=== PATIENT | male | born 1975 | race Caucasian/White ===

== ENCOUNTER → 2016-06-28 | Day surgery (SDC) | payer OTHER ==
[2016-06-26 10:05] LABS: BILIRUBIN NEGATIVE (NEGATIVE); BLOOD NEGATIVE (NEGATIVE); CLARITY CLEAR (CLEAR); COLOR YELLOW (YELLOW); GLUCOSE NEGATIVE (NEGATIVE); KETONE NEGATIVE (NEGATIVE); LEUKO ESTERASE NEGATIVE (NEGATIVE); NITRITE NEGATIVE (NEGATIVE); PROTEIN NEGATIVE (NEGATIVE); SPECIFIC GRAVITY <= 1.005 (1.005-1.030); UROBILINOGEN 0.2 E.U./dl (0.2-1.0)
[2016-06-26 10:08] LABS: BASO % 0.4 % (0.0-1.0); EOS # 0.2 10*3/uL (0.0-0.4); EOS % 1.6 % (1.0-4.0); HEMATOCRIT 44.9 % (42.0-52.0); HEMOGLOBIN 15.3 g/dl (14.0-18.0); LYMPH # 1.9 10*3/uL (1.3-4.4); LYMPH % 21.3 % (27.0-41.0); MEAN CORPUSCULAR HGB 29.3 pg (27.0-31.0); MEAN CORPUSCULAR HGB CONC 34.1 g/dl (33.0-37.0); MEAN PLATELET VOLUME 12.2 fl (9.6-12.3); MONO # 0.6 10*3/uL (0.1-1.0); MONO % 6.5 % (3.0-9.0); NEUT # 6.4 10*3/uL (2.3-7.9); NEUT % 69.9 % (47.0-73.0); PLATELET COUNT AUTOMATED 193 10*3/uL (130-400); RED BLOOD COUNT 5.22 10*6/uL (4.50-5.90); RED CELL DISTRI WIDTH 13.9 % (0-14.5); WHITE BLOOD COUNT 9.1 10*3/uL (4.8-10.8)
[2016-06-26 10:32] LABS: BUN 9 mg/dl (7-24); CARBON DIOXIDE 23 mmol/L (21-32); CHLORIDE 106 mmol/L (98-107); EST GLOM FILT AFRICAN AMERICAN > 60 ml/min; GLUCOSE 121 mg/dL (65-99); POTASSIUM 3.6 mmol/L (3.5-5.1); SODIUM 140 mmol/L (136-145)
[2016-06-26 10:37] LABS: INTERNATIONAL NORM RATIO 0.9 (2.0-3.5); PROTHROMBIN TIME 9.9 SECONDS (9.0-12.4)
[~2016-06-28] VITALS: Ht 182.8 cm; Wt 90.7 kg
[~2016-06-28] MED LIST: NORCO 5-325 TA1 EACH PO
--- NOTE | ~2016-06-28 | O ---
[place], [place] OPERATIVE NOTE NAME: MARCIAL ANDUJAR [facility] #: [id number] UNIT #: [id number] ROOM: DOCTOR: TOLU TORO MD BIRTHDATE: [birth year] DOS: 06/28/2016 PREOPERATIVE DIAGNOSIS: Left inguinal hernia. POSTOPERATIVE DIAGNOSIS: Left inguinal hernia. PROCEDURE: Left inguinal hernia repair with plug and mesh (medium). SURGEON: Tolu Toro M.D. SECURITY COORDINATOR: MS3. ANESTHESIA: General with endotracheal intubation. INDICATIONS: This is a 41-year-old gentleman with a history of bilateral inguinal hernias. He had undergone right-sided inguinal hernia repair a few weeks ago. Today, he is here for a left-sided repair. The procedure and its complications were explained to the patient in detail preoperatively. Complications that were discussed included but were not limited to bleeding, infection, hematoma/seroma/abscess formation, prolonged postoperative pain, damage to underlying vital structures and recurrence. He agreed to proceed. DESCRIPTION OF PROCEDURE: After identifying the patient, the patient was brought to the operating suite and laid in the supine position. After induction of general anesthesia, a timeout procedure was called and the parts were then painted and draped in the usual sterile fashion. The left groin incision parallel to the left inguinal ligament was made. The skin and the subcutaneous tissue were incised. The external oblique aponeurosis was incised in the line of its fibers. The cord structures were encircled with the help of a T[place]ate drain. There was found to be weakness of the posterior wall, but there was no obvious hernial sac seen in the cord structures. Therefore, a diagnosis of a direct inguinal hernia was made. Medium mesh was placed in the defect and sutured to the upturn part of the inguinal ligament in order to keep the plug in place. The mesh was fashioned according to the size that was required for the repair and was placed around the cord structures and sutured superiorly to the conjoined tendon and inferiorly to the upturn part of the inguinal ligament with the help of 3-0 Prolene in a running fashion. Thereafter, the Tecate drain was removed and hemostasis was confirmed. The external oblique aponeurosis was now approximated with the help of 3-0 Vicryl in a running fashion. The subcutaneous tissue was approximated with the help of 2-0 Vicryl in a running fashion. The edges of the skin were approximated after local anesthesia was infiltrated (1% plain lidocaine) with 4-0 Vicryl. A dressing was placed. The patient tolerated the procedure well and was extubated uneventfully and taken to the recovery room in stable fashion. There were no complications. Dr. Tolu Toro, the attending surgeon, was present throughout the operating case. [place], [place] OPERATIVE NOTE NAME: MARCIAL ANDUJAR UNIT #: [id number] ROOM: DOCTOR: TOLU TORO MD BIRTHDATE: [birth year] Tolu Toro MD CM:OPRECORD:OPERATIVE NOTE [id number] TOLU TORO MD 06/28/16 1019 interface
[2016-06-28 07:45] VITALS: BP 119/71
[2016-06-28 09:07] VITALS: BP 122/81
[2016-06-28 09:22] VITALS: BP 135/84
[2016-06-28 09:37] VITALS: BP 142/84
[2016-06-28 09:52] VITALS: BP 139/87
[2016-06-28 10:07] VITALS: BP 125/80
== END | disposition home or self-care (01) ==
LOC: SDC 06-22 09:30
PROVIDERS: Surgery
DX: K40.90 Unilateral inguinal hernia, without obstruction or gangrene, not specified as recurrent (principal); J45.909 Unspecified asthma, uncomplicated; F17.210 Nicotine dependence, cigarettes, uncomplicated; Z82.49 Family history of ischemic heart disease and other diseases of the circulatory system; Z83.3 Family history of diabetes mellitus; Z80.9 Family history of malignant neoplasm, unspecified